=== PATIENT | female | born 1985 | race Caucasian/White ===

== ENCOUNTER 2018-10-13 17:40 | Emergency (ER) | payer OTHER ==
[~2018-10-13] VITALS: Ht 160 cm; Wt 81.6 kg
[~2018-10-13 17:40] MED LIST: SINGULAIR 10MG10 MG PO; SYMBICORT 16010.2 GM IH; ZYNCOF 20-400120 ML PO; ZYRTEC10 MG PO
[2018-10-13] MEDS ORDERED: AMOXICILLIN500 M1 (17:49)
== END 2018-10-13 19:02 | disposition home or self-care (01) ==
LOC: ER 17:40
DX: K04.7 Periapical abscess without sinus (principal)

== ENCOUNTER 2019-05-15 22:28 | Emergency (ER) | payer OTHER ==
[~2019-05-15] VITALS: Ht 160 cm; Wt 88.5 kg
[~2019-05-15 22:28] MED LIST changes: +AMOXICILLIN500 M1
== END 2019-05-16 05:51 | disposition home or self-care (01) ==
LOC: ER 22:28
DX: R55 Syncope and collapse (principal)

== ENCOUNTER 2022-03-04 18:11 | Emergency (ER) | payer OTHER ==
[~2022-03-04] VITALS: Ht 160 cm; Wt 99.8 kg
[2022-03-04] MEDS ORDERED: [UNRECOGNIZED DRUG - OTHER] (18:21)
[2022-03-04] MEDS ORDERED: SEROQUEL200 MG PO (18:21)
[2022-03-04] MEDS ORDERED: CLONAZEPAM0.5 M1 PO (18:22)
[2022-03-04] MEDS ORDERED: EC-NAPROSYN375 MG PO (21:02)
[2022-03-04] MEDS ORDERED: ORPHENADRINE C100 MG PO (21:02)
== END 2022-03-04 21:15 | disposition home or self-care (01) ==
LOC: ER 18:11
DX: M54.30 Sciatica, unspecified side (principal); M54.9 Dorsalgia, unspecified; M62.830 Muscle spasm of back

== ENCOUNTER 2023-03-26 08:20 | Emergency (ER) | payer OTHER ==
[~2023-03-26] VITALS: Ht 152.4 cm; Wt 106.6 kg
[~2023-03-26 08:20] MED LIST changes: +CLONAZEPAM0.5 M1 PO; +EC-NAPROSYN375 MG PO; +ORPHENADRINE C100 MG PO; +SEROQUEL200 MG PO; +[UNRECOGNIZED DRUG - OTHER]
[2023-03-26] MEDS ORDERED: AMOX1TAB5 PO (09:05)
[2023-03-26] MEDS ORDERED: MEDROLPACK PO (09:05)
== END 2023-03-26 09:22 | disposition home or self-care (01) ==
LOC: ER 08:20
DX: J06.9 Acute upper respiratory infection, unspecified (principal)

== ENCOUNTER 2024-07-13 18:36 | Emergency (ER) | payer OTHER ==
[~2024-07-13] VITALS: Ht 160 cm; Wt 86.2 kg
[~2024-07-13 18:36] MED LIST changes: +AMOX1TAB5 PO; +MEDROLPACK PO
[2024-07-13] MEDS ORDERED: 0.9 % SODIUM CHLORIDE 1,000 ML IV SCH (19:30)
[2024-07-13] MEDS ORDERED: ACETAMINOPHEN 500 MG GEL..CAP PO ONE ×2 (19:30→19:35)
[2024-07-13] MEDS ORDERED: ONDANSETRON HCL 2 MG/ML VIAL IV ONE (19:30)
[2024-07-13] MEDS ORDERED: ONDANSETRON HCL 2 MG/ML VIAL ONE (19:35)
[2024-07-13 20:26] LABS: HEMATOCRIT 39.1 % (36.0-45.00); HEMOGLOBIN 13.6 g/dL (12.0-15.00); MEAN CELL VOLUME 88.8 fL (80.00-100.00); MEAN CORPUSCULAR HEMOGLOBIN 30.9 pg (27.00-32.0); MEAN CORPUSCULAR HGB CONC 34.8 g/dl (32.0-36.0); PLATELET COUNT 245 K/uL (150-450); RED CELL DISTRIBUTION WIDTH 13.5 % (11.5-14.5)
[2024-07-13 20:55] LABS: ALBUMIN 4.3 gm/dL (3.4-5.0); BILIRUBIN TOTAL 0.67 mg/dL (0.3-1.2); CALCIUM 8.7 mg/dL (8.5-10.1); CREATININE SERUM 0.87 mg/dL (0.55-1.02); GFR 73.26; GLOBULINA 3.7 G/DL (2.4-3.5); POTASSIUM 3.59 mEq/L (3.5-5.1)
[2024-07-13] MEDS ORDERED: ONDANSETRON ODT8 MG PO (22:02)
[2024-07-13] MEDS ORDERED: DOLOGEN CAPLET1 EACH PO (22:02)
[2024-07-13] MEDS ORDERED: TUSNEL LIQUID178 ML PO (22:02)
== END 2024-07-13 22:35 | disposition home or self-care (01) ==
LOC: ER 18:37
PROVIDERS: General Practice
DX: B34.9 Viral infection, unspecified (principal); Z20.822 Contact with and (suspected) exposure to COVID-19
CPT/HCPCS: 36415; 96365; 96366; 99282; J2405; J7030

== ENCOUNTER 2024-09-29 08:34 | Emergency (ER) | payer OTHER ==
[~2024-09-29] VITALS: Ht 160 cm; Wt 86.2 kg
[~2024-09-29 08:34] MED LIST changes: +DOLOGEN CAPLET1 EACH PO; +ONDANSETRON ODT8 MG PO; +TUSNEL LIQUID178 ML PO
== END 2024-09-29 10:12 | disposition home or self-care (01) ==
LOC: ER 08:36
DX: K05.30 Chronic periodontitis, unspecified (principal)

== ENCOUNTER 2024-12-21 10:07 | Emergency (ER) | payer OTHER ==
[~2024-12-21] VITALS: Ht 160 cm; Wt 86.2 kg
[2024-12-21 11:35] LABS: HEMATOCRIT 36.9 % (36.0-45.00); HEMOGLOBIN 12.8 g/dL (12.0-15.00); MEAN CELL VOLUME 90.8 fL (80.00-100.00); MEAN CORPUSCULAR HEMOGLOBIN 31.5 pg (27.00-32.0); MEAN CORPUSCULAR HGB CONC 34.7 g/dl (32.0-36.0); PLATELET COUNT 293 K/uL (150-450); RED BLOOD COUNT 4.07 M/uL (4.00-6.00); RED CELL DISTRIBUTION WIDTH 12.7 % (11.5-14.5)
[2024-12-21 12:07] LABS: CALCIUM 9.1 mg/dL (8.5-10.1); CREATININE SERUM 0.56 mg/dL (0.55-1.02); GFR 121.81; POTASSIUM 4.02 mEq/L (3.5-5.1)
== END 2024-12-21 13:00 | disposition home or self-care (01) ==
LOC: ER 10:09
PROVIDERS: General Practice
DX: I10 Essential (primary) hypertension (principal); R42 Dizziness and giddiness

== ENCOUNTER 2024-12-30 12:26 | Emergency (ER) | payer OTHER ==
[~2024-12-30] VITALS: Ht 152.4 cm; Wt 90.7 kg
[2024-12-30] MEDS ORDERED: IPRATROPIUM BROMIDE 0.5 MG/2.5 ML AMPUL.NEB IH SCH (13:00)
[2024-12-30] MEDS ORDERED: FAMOtidine 10 MG/ML (4ML VIAL) IV ONE (13:00)
[2024-12-30] MEDS ORDERED: LEVALBUTEROL HCL 1.25 MG/3 ML SOLUTION IH SCH (13:00)
[2024-12-30] MEDS ORDERED: MAGNESIUM SULFATE IN WATER 2 GM/50 ML PIGGYBAG IV ONE (13:00)
[2024-12-30] MEDS ORDERED: METHYLPREDNISOLONE SOD SUCC 125 MG VIAL IV ONE (13:00)
[2024-12-30] MEDS ORDERED: CEFTRIAXONE SODIUM 1,000 MG VIAL IV ONE (13:00)
[2024-12-30] MEDS ORDERED: FAMOTIDINE/PF 20 MG/2 ML VIAL ONE (13:03)
[2024-12-30] MEDS ORDERED: CEFTRIAXONE SODIUM 1,000 MG VIAL ONE (13:03)
[2024-12-30] MEDS ORDERED: METHYLPREDNISOLONE SOD SUCC 125 MG VIAL ONE (13:03)
[2024-12-30] MEDS ORDERED: IPRATROPIUM BROMIDE 0.5 MG/2.5 ML AMPUL.NEB IH ONE (13:16)
[2024-12-30] MEDS ORDERED: LEVALBUTEROL HCL 1.25 MG/3 ML SOLUTION IH ONE (13:16)
[2024-12-30 13:21] LABS: HEMATOCRIT 34.3 % (36.0-45.00); HEMOGLOBIN 12.1 g/dL (12.0-15.00); MEAN CORPUSCULAR HEMOGLOBIN 31.3 pg (27.00-32.0); MEAN CORPUSCULAR HGB CONC 35.2 g/dl (32.0-36.0); PLATELET COUNT 452 K/uL (150-450); RED BLOOD COUNT 3.85 M/uL (4.00-6.00)
[2024-12-30] MEDS ORDERED: PEPCID AC20 MG PO (14:20)
[2024-12-30] MEDS ORDERED: AZITHROMYCIN500 MG PO (14:20)
[2024-12-30] MEDS ORDERED: SINGULAIR10 MG PO (14:20)
[2024-12-30] MEDS ORDERED: LEVALBUTER0.63 MG/3 IH (14:20)
[2024-12-30] MEDS ORDERED: MEDROLPACK PO (14:20)
[2024-12-30] MEDS ORDERED: PROAIR RESPICL90 MCG IH (14:20)
== END 2024-12-30 14:24 | disposition home or self-care (01) ==
LOC: ER 12:29
PROVIDERS: General Practice
DX: J45.901 Unspecified asthma with (acute) exacerbation (principal); J00 Acute nasopharyngitis [common cold]; Z20.822 Contact with and (suspected) exposure to COVID-19
CPT/HCPCS: 36415; 71046; 94640; 99284; J0696; J3475; J3490

== ENCOUNTER 2025-09-26 09:28 | Emergency (ER) | payer OTHER ==
[~2025-09-26] VITALS: Ht 160 cm; Wt 88.5 kg
[~2025-09-26 09:28] MED LIST changes: +AZITHROMYCIN500 MG PO; +LEVALBUTER0.63 MG/3 IH; +PEPCID AC20 MG PO; +PROAIR RESPICL90 MCG IH; +SINGULAIR10 MG PO
[2025-09-26 10:15] VITALS: O2SAT 97
[2025-09-26] MEDS ORDERED: 0.9 % SODIUM CHLORIDE 1,000 ML IV SCH (11:00)
[2025-09-26] MEDS ORDERED: METOCLOPRAMIDE HCL 5 MG/ML VIAL IV ONE (11:00)
[2025-09-26] MEDS ORDERED: METOCLOPRAMIDE HCL 5 MG/ML VIAL ONE (11:11)
[2025-09-26 11:53] LABS: BASO % 0.6 % (0.1-1.2); EOS # 0.31 (0.04-0.54); EOS % 4.7 % (0.7-7.0); LYMPH # 1.87 (1.18-3.74); LYMPH % 28.2 % (19.3-53.1); MEAN PLATELET VOLUME 9.80 fl (9.4-12.4); MONO # 0.48 (0.24-0.82); MONO % 7.2 % (4.7-12.5); NEUT # 3.92 (1.56-6.13); NEUT % 59.1 % (34.0-71.1); RED CELL DISTRIBUTION WIDTH 12.1 % (11.6-14.4)
[2025-09-26 11:59] VITALS: BP 157/93
[2025-09-26 12:46] LABS: COVID-19 AG NEGATIVE (NEGATIVE)
[2025-09-26 12:51] LABS: ALT/SGPT 20.0 U/L (12-78); AST/SGOT 11.0 U/L (15-37); BILIRUBIN TOTAL 0.74 mg/dL (0.3-1.2); BUN CREA RATIO 15.0 (7.0-25.0); CREATININE SERUM 0.61 mg/dL (0.55-1.02); GFR 109.77; GLOBULINA 3.4 G/DL (2.4-3.5); GLUCOSE FASTING 89.0 mg/dL (65-100); OSMOLALITY SERUM 279.0 MOSM/KG (275-295)
[2025-09-26 13:26] LABS: URINE APPEARANCE Clear; URINE BILIRRUBIN Negative (NEGATIVE); URINE BLOOD Negative; URINE COLOR Yellow; URINE GLUCOSE Negative (NEGATIVE); URINE KETONE Negative (NEGATIVE); URINE LEUKOCYTE Negative; URINE NITRATE Negative; URINE PROTEIN Negative (NEGATIVE); URINE UROBILINOGEN 0.2 E.U./dl
[2025-09-26 13:30] LABS: URINE BACTERIA 2602.5 uL (0.0-1933); URINE EPITHELIAL CELLS 31.8 uL (0.0-38.8); URINE RBC 13.0 uL (0.0-20.8); URINE WBC 4.9 uL (0.0-23.2)
[2025-09-26 13:37] LABS: URINE CAST 0.29 uL (0.0-1.40)
[2025-09-26] MEDS ORDERED: HYDROXYZINE HCL25 MG PO (14:33)
== END 2025-09-26 14:59 | disposition home or self-care (01) ==
LOC: ER 09:28
PROVIDERS: Student in an Organized Health Care Education/Training Program
DX: F41.0 Panic disorder [episodic paroxysmal anxiety] (principal); G43.909 Migraine, unspecified, not intractable, without status migrainosus; B34.9 Viral infection, unspecified; R42 Dizziness and giddiness; Z73.0 Burn-out; Z20.822 Contact with and (suspected) exposure to COVID-19

== ENCOUNTER 2025-10-30 08:26 | Emergency (ER) | payer OTHER ==
[~2025-10-30] VITALS: Ht 160 cm; Wt 88.5 kg
[~2025-10-30 08:26] MED LIST changes: +HYDROXYZINE HCL25 MG PO
[2025-10-30] MEDS ORDERED: KETOROLAC TROMETHAMINE 60 MG VIAL IM ONE ×2 (09:30→09:33)
[2025-10-30] MEDS ORDERED: CEFTRIAXONE SODIUM 1,000 MG VIAL IM ONE (09:30)
[2025-10-30] MEDS ORDERED: NORFLEX100MG PO (09:31)
[2025-10-30] MEDS ORDERED: LIDOCAINE HCL/MPF 1% 5ML VIAL IJ ONE (09:33)
[2025-10-30] MEDS ORDERED: CEFTRIAXONE SODIUM 1,000 MG VIAL ONE (09:34)
[2025-10-30 10:15] LABS: BASO % 0.4 % (0.1-1.2); EOS # 0.39 (0.04-0.54); EOS % 3.0 % (0.7-7.0); LYMPH # 1.88 (1.18-3.74); LYMPH % 14.3 % (19.3-53.1); MEAN PLATELET VOLUME 9.40 fl (9.4-12.4); MONO # 0.66 (0.24-0.82); MONO % 5.0 % (4.7-12.5); NEUT # 10.14 (1.56-6.13); NEUT % 77.1 % (34.0-71.1); RED CELL DISTRIBUTION WIDTH 12.3 % (11.6-14.4)
[2025-10-30 11:18] LABS: ALT/SGPT 20 U/L (12-78); AST/SGOT 10 U/L (15-37); BILIRUBIN TOTAL 0.77 mg/dL (0.3-1.2); BUN CREA RATIO 16 (7.0-25.0); CREATININE SERUM 0.57 mg/dL (0.55-1.02); GLOBULINA 3.6 G/DL (2.4-3.5); GLUCOSE FASTING 96 mg/dL (65-100); OSMOLALITY SERUM 278 MOSM/KG (275-295)
[2025-10-30 11:19] LABS: HCG QUANTITATIVE < 1 mUI/mL (1-3)
== END 2025-10-30 10:17 | disposition home or self-care (01) ==
LOC: ER 08:27
PROVIDERS: General Practice
DX: R22.0 Localized swelling, mass and lump, head (principal); K02.9 Dental caries, unspecified